=== PATIENT | female | born 1955 | race African-American/Black ===

== ENCOUNTER 2016-08-09 05:57 | Day surgery (SDC) | payer MEDICARE ==
--- NOTE | ~2016-08-09 | EGD ---
EGD REPORT [facility] [address] [place]. [address] NAME: CLARISSA DONOHUE : [birth year] STATUS : REG [facility] PAT#: [id number] AGE: 61 ADM/REG DATE : 08/09/16 MR#: [id number] REPORT SERV DATE: 08/09/16 DICTATED BY: DHIRAJ IYER DATE: 08/09/16 REPORT STATUS : Draft TRANS[facility]IBED [facility] DATE: 08/09/16 [facility] Patient Name: Clarissa Donohue Date of : 1955 Attending MD: DHIRAJ IYER MD Procedure Date No Time: 08/09/2016 Procedure: Colonoscopy Indications: Screening in patient at increased risk: Family history of 1st-degree relative with colorectal cancer father. Patient Profile: Informed consent was obtained from the patient by me prior to the procedure. Risks, benefits, and alternatives were discussed including the risk of bleeding, perforation, infection, reaction to medicine, missed lesion, and cardiopulmonary complications. Referring MD: Rajiv Sexton MD Medicines: Monitored Anesthesia Care Complications: No immediate complications. Procedure: Pre-Anesthesia Assessment: - ASA Grade Assessment: III - A patient with severe systemic disease. After I obtained informed consent, the scope was passed under direct vision. Throughout the procedure, the patient's blood pressure, pulse, and oxygen saturations were monitored continuously. The PCF [id number] was introduced through the anus and advanced to the cecum, identified by appendiceal orifice and ileocecal valve. The colonoscope was slowly withdrawn with careful examination all mucosal surfaces including specific attention around flexures and tip deflection behind folds; retroflexion performed in rectum. The colonoscopy was performed without difficulty. The patient tolerated the procedure well. The quality of the bowel preparation was adequate. The ileocecal valve, appendiceal orifice and rectum were photographed. Findings: The colon (entire examined portion) appeared normal. Internal hemorrhoids were found, and they were mild. Impression: - The entire examined colon is normal. - Internal hemorrhoids. Recommendation: - Patient has a contact number available for emergencies. The signs and symptoms of potential delayed complications were discussed with the patient. Return to EGD REPORT [address] [address] NAME: CLARISSA DONOHUE : [birth year] STATUS : REG [facility] PAT#: [id number] AGE: 61 ADM/REG DATE : 08/09/16 MR#: [id number] REPORT SERV DATE: 08/09/16 DICTATED BY: DHIRAJ IYER DATE: 08/09/16 REPORT STATUS : Draft TRANSCRIBED BY: [employer] DATE: 08/09/16 normal activities tomorrow. Written discharge instructions were provided to the patient. - Regular diet. - Continue present medications. - Repeat colonoscopy in 5 years for screening purposes. Procedure Code(s): --- Professional --- 47696, Colonoscopy, flexible, proximal to splenic flexure; diagnostic, with or without collection of specimen(s) by brushing or washing, with or without colon decompression (separate procedure) Diagnosis Code(s): --- Professional --- K64.8, Other hemorrhoids Z12.11, Encounter for screening for malignant neoplasm of colon Z80.0, Family history of malignant neoplasm of digestive organs CPT copyright 2013 [employer]. All rights reserved. The codes documented in this report are preliminary and upon medical assistant review may be revised to meet current compliance requirements. DHIRAJ IYER MD 08/09/2016 7:44 AM This report has been signed electronically. Number of Addenda: 0 Note Initiated On: 08/09/2016 6:54 AM Scope Withdrawal Time 0 hours 10 minutes 39 seconds [id number] [place] [id number]
--- NOTE | ~2016-08-09 | EGD ---
EGD REPORT [facility] [address] [place]. [address] NAME: CLARISSA DONOHUE : 51 STATUS : REG [facility] [place] PAT#: [id number] AGE: 61 ADM/REG DATE : 08/09/16 MR#: [id number] REPORT SERV DATE: 08/09/16 DICTATED BY: DHIRAJ IYER DATE: 08/09/16 REPORT STATUS : Draft TRANSCRIBED BY: [facility] DATE: 08/09/16 [facility] Patient Name: Clarissa Donohue Date of : 1955 Attending MD: DHIRAJ IYER MD Procedure Date No Time: 08/09/2016 Procedure: Upper GI endoscopy Indications: Dysphagia, Heartburn; Omeprazole 20mg daily. Patient Profile: Informed consent was obtained from the patient by me prior to the procedure. Risks, benefits, and alternatives were discussed including the risk of bleeding, perforation, infection, reaction to medicine, missed lesion, and cardiopulmonary complications. Referring MD: Rajiv Sexton MD Medicines: Monitored Anesthesia Care Complications: No immediate complications. Procedure: Pre-Anesthesia Assessment: - ASA Grade Assessment: III - A patient with severe systemic disease. After obtaining informed consent, the endoscope was passed under direct vision. Throughout the procedure, the patient's blood pressure, pulse, and oxygen saturations were monitored continuously. The GIF H190 [id number] was introduced through the mouth, and advanced to the second part of duodenum. The endoscope was withdrawn with careful examination all mucosal surfaces including retroflexion stomach. The upper GI endoscopy was accomplished without difficulty. The patient tolerated the procedure well. Findings: The first part of the duodenum and 2nd part of the duodenum were normal. Biopsies were taken with a cold forceps for histology. Patchy mildly erythematous mucosa was found in the gastric antrum. Biopsies were taken with a cold forceps for histology. The cardia, gastric fundus and gastric body were normal. A single 5 mm sessile polyp was found in the gastric fundus. Biopsies were taken with a cold forceps for histology. The esophagus and gastroesophageal junction were examined with white light. There was no visual evidence of Camilo's esophagus. The examined esophagus was normal. 48F Savary dilation performed over guidewire held in antrum; no resistance to dilation; endoscopic visualization afterwards no mucosal breaks. Impression: - Normal first part of the duodenum and 2nd part of the EGD REPORT [place] [id number] [facility] [place]. [address] NAME: CLARISSA DONOHUE : [birth year] STATUS : REG [facility]#: [id number] AGE: 61 ADM/REG DATE : 08/09/16 MR#: [id number] REPORT SERV DATE: 08/09/16 DICTATED BY: DHIRAJ IYER DATE: 08/09/16 REPORT STATUS : Draft TRANSCRIBED BY: [employer] DATE: 08/09/16 duodenum. Biopsied. - Erythematous mucosa in the antrum. Biopsied. - Normal cardia, gastric fundus and gastric body. - A single gastric polyp. Biopsied. - There is no endoscopic evidence of Camilo's esophagus. - Normal esophagus. Dilated. Recommendation: - Patient has a contact number available for emergencies. The signs and symptoms of potential delayed complications were discussed with the patient. Return to normal activities tomorrow. Written discharge instructions were provided to the patient. - Regular diet. - Continue present medications. - Await pathology results. Procedure Code(s): --- Professional --- 87992, Esophagogastroduodenoscopy, flexible, transoral; with insertion of guide wire followed by passage of dilator(s) through esophagus over guide wire 46692, Esophagogastroduodenoscopy, flexible, transoral; with biopsy, single or multiple Diagnosis Code(s): --- Professional --- K31.9, Disease of stomach and duodenum, unspecified K31.7, Polyp of stomach and duodenum R13.10, Dysphagia, unspecified R12, Heartburn CPT copyright 2013 [employer]. All rights reserved. The codes documented in this report are preliminary and upon medical doctor md review may be revised to meet current compliance requirements. DHIRAJ IYER MD 08/09/2016 7:24 AM This report has been signed electronically. Number of Addenda: 0 Note Initiated On: 08/09/2016 6:52 AM Scope Withdrawal Time 0 hours 0 minutes 0 seconds [id number] [place] [address]
[~2016-08-09 05:57] MED LIST: ALPHAGAN OPH; ALPHAGAN P0.1 % OPH; ALPRAZOLAM; ESTRACE1 MG PO; HORMONE PILL; KEPPRA PO; KEPPRA500 PO; LAMICTAL150 MG PO; LISINOPRIL; LISINOPRIL PO; NORV5 PO; P125 PO; PREMARIN; PREMARIN PO; PRIN20 PO; SEV VITAMINS PO; T PO; TEARS NATURA OPH; VIMPAT200 MG PO; XALAT OPH; XANAX PO; ZOFRAN ODT4 MG PO; ZOL50 PO
== END 2016-08-09 23:59 | disposition home or self-care (01) ==
LOC: DMU 05:57
PROVIDERS: Internal Medicine Gastroenterology
PROC: 0D758ZZ Dilation of Esophagus, Via Natural or Artificial Opening Endoscopic (ICD-10-PCS; 2016-08-09)
PROC: 0DJD8ZZ Inspection of Lower Intestinal Tract, Via Natural or Artificial Opening Endoscopic (ICD-10-PCS; principal; 2016-08-09 07:00)
PROC: 0DB98ZX Excision of Duodenum, Via Natural or Artificial Opening Endoscopic, Diagnostic (ICD-10-PCS; 2016-08-09 07:00)
PROC: 0DB68ZX Excision of Stomach, Via Natural or Artificial Opening Endoscopic, Diagnostic (ICD-10-PCS; 2016-08-09 07:00)
DX: Z12.11 Encounter for screening for malignant neoplasm of colon (principal); Z80.0 Family history of malignant neoplasm of digestive organs; K64.8 Other hemorrhoids; K31.7 Polyp of stomach and duodenum; K31.9 Disease of stomach and duodenum, unspecified; K21.9 Gastro-esophageal reflux disease without esophagitis; I10 Essential (primary) hypertension; E11.39 Type 2 diabetes mellitus with other diabetic ophthalmic complication; J45.909 Unspecified asthma, uncomplicated; G40.909 Epilepsy, unspecified, not intractable, without status epilepticus; H40.9 Unspecified glaucoma; F32.9 Major depressive disorder, single episode, unspecified; Z88.0 Allergy status to penicillin; Z88.2 Allergy status to sulfonamides; Z88.5 Allergy status to narcotic agent; Z88.6 Allergy status to analgesic agent; Z79.818 Long term (current) use of other agents affecting estrogen receptors and estrogen levels; Z79.899 Other long term (current) drug therapy
CPT/HCPCS: 43239; 43248; G0105; 82962; 88305